=== PATIENT | male | born 1960 | race Caucasian/White ===

== ENCOUNTER → 2016-12-22 | Outpatient (CLI) | payer OTHER ==
--- NOTE | ~2016-12-22 | CT4 ---
[facility]. [facility] A Service of [facility] RADIOLOGY TEXT RESULTS PATIENT: HUGO TIPTON LOCATION: [facility] : 64 UNIT #: [id number] AGE: [address]: Darshan Ball MD SEX: M ORDER DR: [id number] [place] [id number] O MR#: [id number] Acc #: [id number] NAME: HUGO TIPTON : 1960 SEX: M STUDY DATE/TIME: 12/22/2016 14:13 UNIT: [facility] ROOM: STUDY DESCRIPTION: CT Abd and Pelv Wo Cont Attending Physician: Darshan Ball M.D. Referring Physician: Grover Bowers M.D. Ordering Physician: Darshan Ball M.D. Primary Care Physician: Darshan Ball M.D. MEDICAL IMAGING REPORT This report is preliminary unless electronic signature is present. EXAM CT abdomen and pelvis without contrast INDICATIONS Left side abdominal pain for 2 weeks. Left flank pain. TECHNIQUE CT of the abdomen and pelvis was performed without contrast. Coronal and sagittal reformatted images were obtained. This CT exam was performed with one or more of the following radiation dose reduction techniques: automatic exposure control, adjustment of mA and/or kV according to patient size, and iterative reconstruction. COMPARISON STUDIES There are no comparisons. FINDINGS The lung bases are clear. The liver is unremarkable. The gallbladder and spleen are unremarkable. Kidneys are unremarkable. The adrenal glands are unremarkable. The pancreas is unremarkable. There is a small fat containing a focal hernia within the anterior abdominal wall in the subcutaneous fat. There is bilateral symmetric appearing stranding and soft tissue density. This has of uncertain etiology and clinical significance. Suggest correlation with any prior imaging studies, if available. PELVIS: The colon is unremarkable. There is no free fluid. There is no inflammatory stranding in the pelvis. The appendix is normal. The bone windows are unremarkable. IMPRESSION [facility] A Service [facility] RADIOLOGY TEXT RESULTS PATIENT: HUGO TIPTON LOCATION: [facility] : 64 UNIT #: [id number] AGE: [address]: Darsahn Ball MD SEX: M ORDER DR: 1. There is symmetric appearing soft tissue attenuation and stranding within the subcutaneous fat of the anterior abdominal wall. The etiology and clinical significance is uncertain. There are some calcifications within this region. Please correlate with any prior CT scans, if available. Differential diagnosis is extremely broad. This may be postsurgical. It could be related to prior trauma. It could be some focal area of inflammation. If there are no prior imaging studies available, then a follow-up CT could be performed in 6 months to document stability of this finding. 2. There is a small fat-containing umbilical hernia. 3. No evidence for kidney stone. Dictated by... Amol Valdivia M.D. THIS IS AN ELECTRONICALLY VERIFIED REPORT Amol Valdivia M.D. at 12/25/2016 7:38 AM ARS/pcl TD: 12/22/2016 17:49 JOB #: [id number] MEDICAL IMAGING REPORT Page 1 of 1
== END | disposition home or self-care (01) ==
LOC: SCT 13:57
DX: R10.9 Unspecified abdominal pain (principal); E11.9 Type 2 diabetes mellitus without complications; K42.9 Umbilical hernia without obstruction or gangrene
CPT/HCPCS: 74176